=== PATIENT | female | born 1955 | race Caucasian/White ===

== ENCOUNTER → 2020-04-12 13:52 | Outpatient (CLI) | payer BC, SELFPAY ==
--- NOTE | ~2020-04-12 | XR_ITS ---
EXAMINATION: XR wrist RT min 3V DATE: 04/12/2020 14:09 INDICATION: Right wrist injury and pain. TECHNIQUE: 4 views of right wrist were obtained. COMPARISON: None. FINDINGS: Bone alignment is normal. No fracture. Joint spaces are well maintained. IMPRESSION: 1. Normal right wrist. Reviewed, dictated and finalized at location B. ET MANAGER IMPRESSION: 1. Normal right wrist.
--- NOTE | ~2020-04-12 | XR_ITS ---
EXAMINATION: XR wrist LT min 3V DATE: 04/12/2020 14:09 INDICATION: Left wrist injury and pain. TECHNIQUE: 4 views of left wrist were obtained. COMPARISON: Left wrist radiographs 08/12/14 FINDINGS: Bone alignment is normal. No fracture. Joint spaces are well maintained. IMPRESSION: 1. Normal left wrist. Reviewed, dictated and finalized at location B. RMATION TECHNOLOGY INTERN IMPRESSION: 1. Normal left wrist.
== END ==
PROVIDERS: PCP Family Medicine Adolescent Medicine; Visit Provider Family Medicine Adolescent Medicine
DX: M25.531 Pain in right wrist (principal); M25.532 Pain in left wrist
CPT/HCPCS: 73110

== ENCOUNTER 2023-06-05 10:13 | Outpatient (CLI) | payer MEDICARE, SELFPAY ==
--- NOTE | ~2023-06-05 | DEXA_ITS ---
Bone Density Report Name: DURAN MELGAR Age: 68 Sex: Female Ethnicity: White Date of : 1955 Indication: postmenopausal; screening for osteoporosis; height loss; prior fracture; Referring Provider: YANA ISRAEL Study: Bone densitometry was performed. Exam Date: June 05, 2023 Accession number: [id number] Bone Density: Region BMD T-score Z-score Classification AP Spine (L1-L4) 0.904 -1.3 0.6 Osteopenia Femoral Neck (Left) 0.632 -2.0 -0.3 Osteopenia Total Hip (Left) 0.701 -2.0 -0.6 Osteopenia Femoral Neck (Right) 0.580 -2.4 -0.8 Osteopenia Total Hip (Right) 0.698 -2.0 -0.7 Osteopenia Total Hip Mean 0.700 -2.0 -0.7 Osteopenia World Health Organization criteria for BMD impression classify patients as: Normal (T-score at or above -1.0), Osteopenia (T-score between -1.0 and -2.5), or Osteoporosis (T-score at or below -2.5). 10-year Fracture Risk(1): Major Osteoporotic Fracture 20% Hip Fracture 4.1% Reported Risk Factors: [place] (), Neck BMD=0.580, BMI=22.6, previous fracture (1) FRAX(R) Version 3.08. Fracture probability calculated for an untreated patient. Fracture probability may be lower if the patient has received treatment. Clinical Information Provided by Patient: Has had a low trauma fracture Has used the following medications: Calcium, MTV, vit D included in calcium Patient maximum height was 68 Menopause Age: 58 No regular weight bearing exercise Drinks caffeinated beverages Onset of menses at age 13 Number of children 2 Impression: The patient has low bone mass, based on the Right Femoral Neck T-score. The patient has an estimated ten-year risk of hip fracture of 4.1% and an estimated ten-year risk of major fracture of 20%, based on the WHO FRAX algorithm. The patient has risk factors, including: previous fracture. Discussion: BONE DENSITY IS LOW AT ONE OR MORE SKELETAL SITES. THE PATIENT'S BMD AND CLINICAL RISK FACTORS CONTRIBUTE TO THIS PATIENT'S HIGH RISK OF FRACTURE. This patient's lowest T-score is low at one or more skeletal sites. It meets the World Health Organization's (WHO) criteria for ?low bone mass? (T-score between -1.0 and -2.5). The patient's 10-year risk of hip fracture and 10 year risk of a major osteoporotic fracture as calculated by FRAX exceeds the threshold where pharmacological therapy is recommended by the National Osteoporosis Foundation (NOF). However, all treatment decisions require clinical judgment and consideration of individual patient factors, including patient preferences, comorbidities, previous drug use, risk factors not captured in the FRAX model (e.g., frailty, falls, vitamin D deficiency, increased bone turnover, interval significant decline in bone density) and possible under or overestimation of fracture risk by FRAX. The sohan
--- NOTE | ~2023-06-05 | MM_ITS ---
EXAMINATION: MM screening porfirio BI w karen HISTORY: Screening TECHNIQUE: Craniocaudal and mediolateral oblique 3-D tomosynthesis images were obtained and synthetic 2-D images were generated. CAD analysis was submitted and interpreted. COMPARISON: No prior mammogram is available for comparison at this institution. BREAST PARENCHYMAL COMPOSITION: Breast composed of scattered areas of fibroglandular density FINDINGS: There is architectural distortion in the upper outer quadrant of the right breast. The left breast is stable without evidence for malignancy. IMPRESSION: 1. New architectural distortion upper outer quadrant of the right breast. 2. Additional mammographic views and possible breast ultrasound are recommended. BI-RADS Category 0: Incomplete: Needs additional imaging evaluation. Reviewed, dictated and finalized at location A. NE LATHE OPERATOR IMPRESSION: 1. New architectural distortion upper outer quadrant of the right breast. 2. Additional mammographic views and possible breast ultrasound are recommended . BI-RADS Category 0: Incomplete: Needs additional imaging evaluation.
== END 2023-06-05 10:14 ==
PROVIDERS: PCP Family Medicine Adolescent Medicine; Visit Provider Family Medicine Adolescent Medicine
DX: Z12.31 Encounter for screening mammogram for malignant neoplasm of breast (principal); Z78.0 Asymptomatic menopausal state; R92.8 Other abnormal and inconclusive findings on diagnostic imaging of breast; M85.852 Other specified disorders of bone density and structure, left thigh; M85.851 Other specified disorders of bone density and structure, right thigh; M85.88 Other specified disorders of bone density and structure, other site
CPT/HCPCS: 77063; 77067; 77080

== ENCOUNTER → 2023-07-01 09:16 | Outpatient (CLI) | payer MEDICARE, SELFPAY ==
--- NOTE | ~2023-07-01 | MMUS_ITS ---
EXAMINATION: MM diagnostic porfirio RT w karen, US breast RT limited HISTORY: Follow-up right breast possible architectural distortion TECHNIQUE: Additional 3-D tomosynthesis images of the right breast were performed and synthetic 2-D i mages were generated. CAD analysis was submitted and interpreted. High resolution Limited right breas t ultrasound was performed. COMPARISON: 06/05/2023 BREAST PARENCHYMAL COMPOSITION: Not dense: There are scattered areas of fibroglandular density. FINDINGS: MAMMOGRAPHIC FINDINGS: The area of possible architectural distortion laterally in the right breast is less apparent with spo t compression and mediolateral views, consistent with superimposed fibroglandular tissue. ULTRASOUND: Limited right breast ultrasound: Normal heterogeneous echotexture without focal solid or cystic mass. IMPRESSION: 1. No evidence for malignancy in the right breast. 2. Routine yearly screening mammogram and regular clinical breast examination are recommended. BI-RADS Category 1: Negative Reviewed, dictated and finalized at location A. FILER IMPRESSION: 1. No evidence for malignancy in the right breast. 2. Routine yearly screening mammogram and regular clinical breast examination a re recommended. BI-RADS Category 1: Negative
== END ==
PROVIDERS: PCP Family Medicine Adolescent Medicine; Visit Provider Family Medicine Adolescent Medicine
DX: R92.8 Other abnormal and inconclusive findings on diagnostic imaging of breast (principal)
CPT/HCPCS: 76642; 77061; 77065; G0279

== ENCOUNTER 2024-09-23 15:39 | Outpatient (CLI) | payer MEDICARE, SELFPAY ==
--- NOTE | ~2024-09-23 | MM_ITS ---
EXAMINATION: MM screening porfirio BI w karen HISTORY: Screening TECHNIQUE: Craniocaudal and mediolateral oblique 3-D tomosynthesis images were obtained and synthetic 2-D images were generated. CAD analysis was submitted and interpreted. COMPARISON: Comparison to multiple prior studies sequentially, with oldest reviewed study dated 06/05. BREAST PARENCHYMAL COMPOSITION: Not dense: There are scattered areas of fibroglandular density. FINDINGS: There is no evidence of suspicious mass, calcification, or architectural distortion to sugg est malignancy in either breast. There has been no suspicious interval change. IMPRESSION: 1. No mammographic evidence of malignancy. 2. Recommend routine screening mammography in one year. BI-RADS Category 1: Negative Reviewed, dictated and finalized at location B.
--- OUTSIDE RECORDS SUMMARY | 2024-09-23 15:44 | XMS_ITS | Clinical Summary ---
Author Organization [facility] Address [address] [place] [address] Care Team Providers Care Cross Cut Saw Operator Name Role Phone José Miguel Redmond MD Primary Care Prov ider Allergies Active Allergy Reactions Criticality Noted Date Comments Penicillins Rash Medium 09/25/2017 Medications celecoxib (CeleBREX) 200 mg capsule Take 200 mg by mouth daily. 07/23/2017 Active omeprazole (PriLOSEC) 20 mg capsule Take 20 mg by mouth daily. 07/23/2017 Active topiramate (TOPAMAX) 25 mg tablet Take 125 mg by mouth daily. 08/06/2017 Active OSPHENA 60 mg tablet Take 60 mg by mouth daily. 08/06/2017 Active multivitamin capsule Take 1 capsule by mouth daily. Active magnesium gluconate 200 mg tablet Take 200 mg by mouth daily. Active biotin 1 mg capsule Take 1 capsule by mouth daily. Active Bifidobacterium infantis (ALIGN) 4 mg capsule Take 4 mg by mouth daily. Active glucosam-chondr oitin-diet cb25 116-100 mg capsule Take 1 capsule by mouth daily. Active risedronate 35 mg tablet,delayed release (DR/EC) Take 35 mg by mouth every 7 days. Active b complex vitamins tablet Take 1 tablet by mouth daily. Active Active Problems Problem Noted Date Diagnosed Date Precordial pain 09/26/2017 Assessment & Plan (09/26/2017 4:28 AM CDT): Admit the patient telemetry for chest pain protocol. Telemetry monitoring Serial troponins Repeat EKG in a.m. Echocardiogram in a.m. Consider Cardiology consult if necessary Start on daily aspirin Supplement will have nitroglycerin as needed for chest pain Will check fasting lipid panel Chronic fatigue 09/26/2017 Assessment & Plan (09/26/2017 4:26 AM CDT): Workup initiated by PCP. Patient is scheduled to be seen by Neurology, also was referred to Rheumatology. Will defer to PCP further workup Arthralgia of hip 05/31/2015 Pain in shoulder 08/16/2014 Complete tear of rotator cuff 08/29/2010 Chest pain Family History Medical History Relation Name Comments Hypertension Brother 1 Family history of hypertension - (Added by TW Conv) Kidney disease Brother 2 Family histor y of kidney disease - (Added by TW Conv) Diabetes Brother 3 Family history of diabetes mellitus - (Added by TW Conv) Mental illness Brother 4 Mental proble m - (Added by TW Conv) Heart disease Father Family history of cardiac disorder - (Added by TW Conv) Heart failure Father Hypertension Father Family history of hypertension - (Added by TW Conv) Arthritis Mother Family history of arthritis - (Added by TW Conv) Heart disease Mother Family history of cardiac disorder - (Added by TW Conv) Hypertension Mother Family history of hypertension - (Added by TW Conv) Lung disease Mother Family history of lung disease - (Added by TW Conv) Relation Name Status Comments Brother 1 Brother 2 Brother 3 Brother 4 Father Mother Social History Tobacco Use Types Packs/Day Years Used Date Smoking Tobacco: Never Smokeless Tobacco: Never Alcohol Use Standard Drinks/Week Comments No 0 (1 standard drink = 0.6 oz pur e alcohol) Personal Safety Answer Date Recorded Have you ever been in or are you currently in a harmful physical or emotional relationship or is someone making you feel afraid or unsafe? Denies 04/04/2024 Comments No Sex and Gender Information Value Date Recorded Sex Assigned at Not on file Legal Sex Female 8:58 PM CORPORATE LICENSED BROKER Gender Identity Not on file Sexual Orientation Not on file Obstetrics History Last Filed Vital Signs Vital Sign Reading Time Taken Comments Blood Pressure 155/80 04/04/2024 3:15 PM CORPORATE LICENSED BROKER Pulse 72 04/04/2024 3:15 PM CORPORATE LICENSED BROKER Temperature 36.4 C (97.6 F) 04/04/2024 10:51 AM CORPORATE LICENSED BROKER Respiratory Rate 20 04/04/2024 10:51 AM CORPORATE LICENSED BROKER Oxygen Saturation 97% 04/04/2024 3:15 PM CORPORATE LICENSED BROKER Inhaled Oxygen Concentration - - Weight 67.1 kg (148 lb) 04/04/2024 10:51 AM CORPORATE LICENSED BROKER Height 170.2 cm (5' 7 ) 04/04/2024 10:51 AM CORPORATE LICENSED BROKER Body Mass Index 23.18 04/04/2024 10:51 AM CORPORATE LICENSED BROKER Plan of Treatment Health Maintenance Due Date Last Done Comments Breast Cancer Screening-Mammogram 1955 Colon Cancer Screening-Colonoscopy 1955 Depression Screening 1955 Fall Risk Assessment 1955 Hepatitis C Screening 1955 Osteoporosis Screening-Bone Density Scan 1955 DTaP/Tdap/Td Vaccine (1 - Tdap) 1967 Hepatitis B Screening 1974 Pneumococcal vaccine 65+ (1 of 1 - PCV) 2006 Zoster Vaccine (1 of 2) 2006 Well Visit 65+ 2021 Covid-19 Vaccine (4 - 2023-2 5 season) 2024 03/10/2021, 07/16/2020, 06/18/2020 Influenza Vaccine (Season Ended) 2025 02/05/2021, 02/17/2020, 02/11/2018, Additional history exists [place] [address] FOR[facility]LY [facility], [facility] [place] [id number] [facility] MEDICARE AD[facility]AGE [facility] Address: [address] [address] [place] [address] [facility] MEDICARE [facility] Address: [address] [address] [place] [address] Advance Directives For more information, please contact: [phone] * Full Code (Latest Code Status on File) Date Activated Date Inactivated Comments 09/25/2017 11:08 PM 09/26/2017 5:50 PM * Full Code Date Activated Date Inactivated Comments 09/25/2017 4:02 PM 09/25/2017 11:08 PM Care Teams Cross Cut Saw Operator Relationship Specialty Start Date End Date José Miguel Redmond MD [address] [place] [address] [facility] - General 09/25/17
--- OUTSIDE RECORDS SUMMARY | 2024-09-23 15:44 | XMS_ITS | Referral Summary ---
Author Organization [facility] Address [address] [place] [address] Care Team Providers Care Alteration Tailor Name Role Phone José Miguel Redmond MD [...] tear of rotator cuff 08/29/2010 Chest pain Social History Tobacco Use Types Packs/Day Years [...] on file Legal Sex Female 8:58 PM SAMPLE BODY BUILDER Gender Identity Not on file Sexual Orientation Not on file Last Filed Vital Signs Vital Sign Reading Time Taken Comments Blood Pressure 155/80 04/04/2024 3:15 PM SAMPLE BODY BUILDER Pulse 72 04/04/2024 3:15 PM SAMPLE BODY BUILDER Temperature 36.4 C (97.6 F) 04/04/2024 10:51 AM SAMPLE BODY BUILDER Respiratory Rate 20 04/04/2024 10:51 AM SAMPLE BODY BUILDER Oxygen Saturation 97% 04/04/2024 3:15 PM SAMPLE BODY BUILDER Inhaled Oxygen Concentration - - Weight 67.1 kg (148 lb) 04/04/2024 10:51 AM SAMPLE BODY BUILDER Height 170.2 cm (5' 7 ) 04/04/2024 10:51 AM SAMPLE BODY BUILDER Body Mass Index 23.18 04/04/2024 10:51 AM SAMPLE BODY BUILDER Plan of Treatment Not on file Insurance [facility] UHC MEDICARE ADVANTAGE [facility] Address: [address] [address] [place] [address] [facility] MEDICARE ADVANTAGE Advance Directives For more information, please contact: [phone] * Full Code (Latest Code Status on File) Date Activated Date Inactivated Comments 09/25/2017 11:08 PM 09/26/2017 5:50 PM * Full Code Date Activated Date Inactivated Comments 09/25/2017 4:02 PM 09/25/2017 11:08 PM Care Teams Alteration Tailor Relationship Specialty Start Date End Date José Miguel Redmond MD [address] [place] [address] PCP - General 09/25/17
== END 2024-09-23 15:40 | disposition home or self-care (01) ==
LOC: ANHIMG 15:41
PROVIDERS: PCP Family Medicine Adolescent Medicine; Visit Provider Family Medicine Adolescent Medicine
DX: Z12.31 Encounter for screening mammogram for malignant neoplasm of breast (principal)
CPT/HCPCS: 77063; 77067